=== PATIENT | female | born 2005 | race Two or more races ===

== ENCOUNTER 2024-10-19 04:21 | Emergency (ER) | payer MEDICAID, SELFPAY ==
[2024-10-19 04:23] VITALS: BMI 27.0
[2024-10-19 04:32] VITALS: BP 118/83; PULSE 127; RESP 20; TEMP 37; O2SAT 96
[2024-10-19 04:55] VITALS: PULSE 106
--- NOTE | 2024-10-19 04:55 | PD.EDURI ---
Upper Respiratory Inf. RME/HPI General Chief Complaint: Flu Like Symptoms Stated Complaint: cough and chest pain Time Seen by Provider: 10/19/24 04:50 Arrival date/time: 10/19/24 04:21 19F with no significant PMH presents to ED with 2 days of cough, nasal congestion, and some CP when coughing. Patient denies SOB. Patient is 8 months , but denies ab pain and vaginal bleeding. Limitations: no limitations Related Data Allergies Allergy/AdvReac Type Severity Reaction Status Date / Time No Known Allergies Allergy Verified 10/19/24 04:22 Review of Systems Review of Systems Systems Reviewed: All systems reviewed, normal except as documented Constitutional Constitutional: Reports system reviewed and no additional complaints, except as documented, Denies fever(s) and Denies headache(s) ENT Ears, Nose, Mouth, and Throat: Reports as per HPI, Denies disequilibrium, Denies headache(s) and Reports nasal congestion Cardiovascular Cardiovascular: Reports system reviewed and no additional complaints, except as documented, Reports as per HPI, Reports chest pain and Denies dyspnea Respiratory Respiratory: Reports system reviewed and no additional complaints, except as documented, Reports as per HPI, Reports cough and Denies dyspnea Gastrointestinal Gastrointestinal: Reports system reviewed and no additional complaints, except as documented, Denies abdominal pain, Denies nausea and Denies vomiting Neurologic Neurologic: Reports system reviewed and no additional complaints, except as documented, Denies confusion, Denies disequilibrium and Denies headache(s) Psychiatric Psychiatric: Denies confusion Past Medical History Past Medical History CARDIAC: Negative Congestive Heart Failure RESPIRATORY: Negative Chronic Obstructive Pulmonary Disease (COPD) GENITOURINARY: Negative Renal Disease ENDOCRINE: Negative Diabetes Mellitus Type 1 or Diabetes Mellitus Type 2 Social History SMOKING STATUS: Never smoker ED Exam General Limitations: Present no limitations General appearance: Present alert and in no apparent distress Head Head exam: Present atraumatic Eye Eye exam: Present normal appearance, PERRL and EOMI ENT ENT exam: Present normal exam, normal oropharynx and mucous membranes moist Neck Neck exam: Present normal inspection, full ROM and trachea midline Chest Chest inspection: Present normal inspection and symmetric chest wall rise Respiratory Respiratory exam: Present normal lung sounds bilaterally Cardiovascular Cardiovascular exam: Present regular rate, normal rhythm and normal heart sounds Abdominal Exam Abdominal exam: Present soft and normal bowel sounds Extremities Exam Extremities exam: Present normal inspection and full ROM Back Exam Back exam: Present normal inspection and full ROM Neurological Exam Neurological exam: Present alert, oriented X3 and CN II-XII intact Psychiatric Psychiatric exam: Present normal affect and normal mood Skin Skin exam: Present warm, dry, intact and normal color Course Quality Measures none Orders Category Date Time Status Bedside COVID-19 Antigen Test NOW Care 10/19/24 04:51 Active Bedside Influenza A&B Antigen Test NOW Care 10/19/24 04:29 Completed Acetaminophen Tab [Tylenol ES Tab] Med 10/19/24 04:53 Discontinued 500 mg PO X1 ONE DiphenhydrAMINE [Benadryl] Med 10/19/24 05:01 Once 25 mg PO X1 ONE Vital Signs Vital signs: Vital Signs Temperature 98.6 F 10/19/24 04:32 Pulse Rate 127 H 10/19/24 04:32 Respiratory Rate 20 10/19/24 04:32 Blood Pressure 118/83 10/19/24 04:32 Pulse Oximetry (%) 96 10/19/24 04:32 Oxygen Delivery Method Room Air 10/19/24 04:32 O2 at 96% on RA and WNLs Upper Respiratory Infection MDM Narrative MDM Narrative:: 19F with no significant PMH presents to ED with 2 days of cough, nasal congestion, and some CP when coughing. Patient denies SOB. Patient is 8 months , but denies ab pain and vaginal bleeding. Physical exam reveals nasal congestion, but clear lungs. Normal WOB. Patient is afebrile, calm, and alert. Swabs neg. Likely viral URI. Meds and college and career counselor given. Patient data External records reviewed:: [facility] previous records Clinical information provided by:: patient Social determinants that could affect healthcare access:: none Patient has the following chronic illnesses:: none How is presenting disease/condition affected by chronic disease/condition?: no chronic disease Evaluation data The following diagnostics were reviewed and interpreted by me:: lab results Lab and/or radiology exams considered but not ordered:: ordered Interpretation Summary: above Medications / Prescriptions Medications or Prescriptions considered but not ordered:: ordered Medication administrations:: Medication Administration History Diphenhydramine HCl (Diphenhydramine 25 Mg Capsule) 25 mg PO X1 ONE Stop: 10/19/24 05:02 Discontinued Medications Acetaminophen (Acetaminophen 500 Mg Tablet) 500 mg PO X1 ONE Stop: 10/19/24 04:54 above Consultations Consultation(s) initiated? (list below): No Diagnosis Upper Respiratory Differential Diagnosis: upper respiratory infection, croup, otitis media, sinusitis, viral infection, bronchitis, influenza and pharyngitis Most likely diagnosis given after review of the tests above:: URI Admission Indicated Admission indicated?: not indicated Admission Request Was there a request for admission?: No Disposition Plan Disposition Plan: Discharge Discharge Attestation Discharge Attestation: The patient and all family members were given an opportunity to ask questions and understood the discharge instructions. Discharge instructions specifically effects, indications for sooner follow up or return to the emergency department, and the expected course of current diagnosis. Patient condition: Stable Discharge Plan Plan Patient Disposition: HOME (Self Care) Disposition Comment: Stable Problem List Clinical Impression: Upper respiratory infection Patient/Caregiver Discharge Instructions Education Materials: ED URI, Viral, No Abx (Adult) Additional Instructions: Please follow-up with PCP within 24-48 hours and return immediately if symptoms worsen. Tylenol can be used for fever/pain control. Benadryl is good for cough, congestion, and sleep. Print Language: Belarusian Stand Alone Forms: Patient Portal Info Letter REYMUNDO/ADA Supervising Physician REYMUNDO/ADA Supervising Physician: Dr. Vyas
[2024-10-19] MEDS: DiphenhydrAMINE 25 MG CAPSULE PO (05:09)
[2024-10-19] MEDS: ACETAMINOPHEN 500 MG TABLET PO (05:09)
== END 2024-10-19 05:22 | disposition home or self-care (01) ==
PROVIDERS: Emergency Provider Emergency Medicine; PCP Family Medicine
DX: J06.9 Acute upper respiratory infection, unspecified (principal)
CPT/HCPCS: 87400; 99283; A9270

== ENCOUNTER 2024-12-03 16:09 | Observation (INO) | payer MEDICAID, SELFPAY ==
[2024-12-03] VITALS (14 sets, daily range): BP systolic 125–129; BP diastolic 85–89; PULSE 87–113; RESP 18–98; TEMP 36.7; O2SAT 97–98; BMI 29.2
--- NOTE | 2024-12-03 17:44 | PC.NURSE ---
VSS reviewed by provider. Ordered by to discharge patient. Patient vitals WNL. Patient asymptomatic. Patient discharged home with significant other. Patient educated on discharge instructions and reasons to return including labor signs and preeclampsia symptoms. Patient instructed to follow up with OB at next scheduled appt on 12/10/24. Patient verbalzies understanding, all questions answered and encouraged.
== END 2024-12-03 17:23 | disposition home or self-care (01) ==
PROVIDERS: Admitting Provider Obstetrics & Gynecology; Visit Provider Obstetrics & Gynecology
DX: O26.893 Other specified pregnancy related conditions, third trimester (principal); Z3A.37 37 weeks gestation of pregnancy; R03.0 Elevated blood-pressure reading, without diagnosis of hypertension
CPT/HCPCS: 59025; 59899

== ENCOUNTER 2024-12-13 06:04 | Inpatient (IN) | payer MEDICAID, SELFPAY ==
[2024-12-13] VITALS (108 sets, daily range): BP systolic 106–152; BP diastolic 30–108; PULSE 73–132; RESP 13–98; TEMP 36.7–37.2; O2SAT 90–100; BMI 29.2
--- NOTE | 2024-12-13 07:02 | XR_ITS ---
Examination: Complete OB ultrasound greater than 14 weeks Date and time of exam: December 13, 2024 0857 hours INDICATIONS: Onset pelvic contractions today Findings: Viable intrauterine single fetus with single amniotic sac presentation cephalic Cardiac motion 147 BPM Placenta anterior grade 3 Umbilical cord insertion seen Amniotic fluid index 11.7 cm Ovaries obscured by bowel gas. Composite estimated gestational age based on BPD, head circumference, abdominal circumference, femur length is 36 weeks 2 days Estimated weight 2921.8 g. Survey of intracranial anatomy, spinal anatomy, abdominal anatomy, four-chamber heart performed with no abnormalities identified. Impression: Viable intrauterine gestation cephalic presentation Estimated gestational age 36 weeks 2 days.
--- NOTE | 2024-12-13 08:00 | PC.NURSE ---
patient to be admitted to antepartum unit for observation. Report given to receiving RN
--- NOTE | 2024-12-13 08:08 | PD.LDHP ---
Documentation for date of: 12/13/24 OB Labor/Induct. HPI History of Present Illness Chief complaint: Elevated Blood Pressures, Headache : 1 Para: 0 Term pregnancies: 0 pregnancies: 0 Living children: 0 History of Abortions: Spontaneous and Elective: 0 History of Vaginal deliveries: 0 History of sections: No History of : No AMY: 12/19/24 History of present illness: Chief Complaint Headache and contractions at 39 weeks and 1 day gestation History of Present Illness Sammi Davis is a 39-week and 1-day woman () with an estimated due date of December 19, 2024, who presented to labor and delivery triage with complaints of headache and contractions. Upon initial examination, she was found to be 1 cm dilated. The patient was admitted after monitoring showed periods of minimal variability with occasional variable decelerations. A preeclampsia panel was performed and found to be within normal limits. The patient's headache resolved after one dose of Tylenol. She was subsequently admitted for induction of labor. Induction was initiated with Cervidil; however, it was discontinued when the baby started having recurrent late decelerations. After a few hours, when the tracing improved, Cytotec was administered. Unfortunately, the baby again experienced periods of minimal variability with recurrent variable and occasional late decelerations. Throughout this process, the patient was placed on labetalol 200 mg TID, which she tolerated well. This treatment effectively lowered her blood pressure from mild and occasionally severe range to normal. The patient received her care at [facility] in [facility]. Her labs showed blood group O positive, rubella immune status, non-reactive RPR, negative hepatitis B and C, positive group B strep, and a negative glucose tolerance test. Obstetric History - GPAL: A0 L0 - Current : - Gestational age: 39 weeks and 1 day - Estimated due date: December 19, 2024 - Group B strep positive - history: - First , no prior deliveries Medications and Supplements - Tylenol - One dose given for headache. Headache resolved after administration. - Cervidil - Started for induction of labor. Discontinued due to recurrent late decelerations. - Cytotec - Started after Cervidil discontinuation for induction of labor. - Labetalol 200 mg by mouth three times daily - Tolerated well. Resulted in drop of blood pressures from mild and occasional severe range to normal. Immunizations - Rubella: Patient is immune Review of Systems General: Positive for headache. Neurological: Positive for headache, which resolved after Tylenol. History of Present Adequate Care: Yes Labs Narrative: - Preeclampsia panel: Within normal limits - labs: - Blood group: O positive - Rubella: Immune - RPR: Non-reactive - Hepatitis B: Negative - Hepatitis C: Negative - Group B strep: Positive - 1-hour glucose tolerance test: Negative Past Medical History Surgical History SURGICAL: Negative Section Meds Home Medications and Allergies Home Medications ?Medication ?Instructions ?Recorded ?Confirmed ?Type vitamin-ferrous fumarate 1 tab PO QDAY 12/13/24 12/13/24 History 28 mg iron-folic acid 800 mcg tablet Allergies Allergy/AdvReac Type Severity Reaction Status Date / Time No Known Allergies Allergy Verified 12/13/24 08:37 OB Exam Physical Exam Vital signs: Temp Pulse Resp BP Pulse Ox 98.3 F 98 18 146/85 H 98 12/13/24 06:20 12/13/24 08:07 12/13/24 06:20 12/13/24 08:07 12/13/24 07:39 Constitutional Constitutional: no acute distress Routine HEENT Exam Head: Present normocephalic and atraumatic Eye: Present EOMI and PERRL ENT: Present mucous membranes moist Routine Neck Exam Neck: Present supple and trachea midline Routine Cardiovascular Exam Cardiovascular: Present RRR Routine Abdominal Exam Abdominal: Present soft and normoactive bowel sounds Detailed Labor and Delivery Exam Dilation (cm): 1 Effacement (%): 50 Cervix position: mid station: -3 Consistency: firm Presentation: Vertex Baseline heart rate: 135 monitor accelerations: 15x15 monitor decelerations: Variable terminal gauger variability: Average (6-10) Contraction frequency (min): 5 Routine Extremities Exam Extremities: Present full ROM Routine Skin Exam Skin: Present intact, dry and warm Routine Neurological Exam Neurological: Present alert, oriented X3 and CN II-XII intact Routine Psychiatric Exam Psychiatric: Present normal affect and normal thought process OB Results Labs 12/13/24 06:45 12/13/24 06:45 OB Assessment & Plan Assessment and Plan (1) intolerance to labor, delivered, current hospitalization: Status: Acute Assessment and plan: Assessment: Patient initially presented with headache and contractions, and was admitted after periods of minimal heart rate variability with occasional variable decelerations were noted. Induction of labor was attempted first with Cervidil, which was discontinued due to recurrent late decelerations. After tracing resolved, Cytotec was initiated, but again resulted in periods of minimal variability with recurrent variable and occasional late decelerations. Given the persistent heart rate concerns and lack of cervical change (patient remains 1 cm dilated), delivery via section is now recommended. Plan: - Proceed with section delivery after patient agreement and informed consent - Continue monitoring until delivery (2) Meconium stained amniotic fluid, delivered, current hospitalization: Status: Acute (3) Primigravida in third trimester: Status: Acute (4) Gestational hypertension: Status: Acute Assessment and plan: Assessment: Patient was placed on labetalol 200 mg TID during the admission process. This intervention has been well-tolerated, with blood pressures dropping from mild and occasional severe range to normal. Plan: - Continue labetalol 200 mg PO TID - Monitor blood pressure (4) Gestational hypertension Qualifiers: Trimester: third trimester Qualified Code(s): O13.3 - Gestational [-induced] hypertension without significant proteinuria, third trimester
[2024-12-13] MEDS: LABETALOL 100 MG TABLET 200 MG PO ×3 (08:39→22:15)
[2024-12-13] MEDS: NIFEdipine 10 MG CAPSULE PO (08:39)
[2024-12-13 08:42] LABS: Collection Type, Urine Clean Catch
[2024-12-13 08:48] LABS: Basophils % (Auto) 0 % (0-2.5); Eosinophils # (Auto) 0.1 Thou/mm3 (0.0-0.5); Eosinophils % (Auto) 1 % (0-10); Hematocrit 30.5 % (36.0-46.0); Hemoglobin 10.3 g/dL (12.0-16.0); Immature Granulocytes % (Auto) 1 % (0-0); Immature Granulocytes Auto 0.05 Thou/mm3 (0.00-0.00); Lymphocytes # (Auto) 2.6 Thou/mm3 (1.0-4.8); Lymphocytes % (Auto) 29 % (10-50); Mean Corpuscular HGB Conc 33.8 g/dl (31.0-37.0); Mean Corpuscular Volume 83 fL (80-100); Monocytes % (Auto) 11 % (0-12); Neutrophils # (Auto) 5.2 Thou/mm3 (1.8-7.7); Neutrophils % (Auto) 58 % (37-80); Nucleated Red Blood Cell # 0.07 Thou/mm3 (0.00-0.00); Nucleated Red Blood Cell % 1 /100 WBC (0); Platelet Count 278 Thou/mm3 (140-440); RDW Standard Deviation 49.9 fL (36.4-46.3); Red Blood Count 3.68 Miln/mm3 (4.00-5.20); White Blood Count 8.9 Thou/mm3 (4.5-11.0)
--- NOTE | 2024-12-13 08:53 | XR_ITS ---
Examination: Biophysical profile, ultrasound Date and time of exam: December 13, 2024 0916 hours INDICATIONS: Onset pelvic contractions today Technique: Multiple transabdominal sonographic images of the pelvis abdomen obtained. Attention is directed to the breathing movement, gross body movement, amniotic fluid volume and tone. Findings: Amniotic fluid index 11.5 cm Total biophysical profile is 8 of 8. breathing movement is 2. Gross body movement is 2. tone is 2. Qualitative amniotic fluid volume is 2 Impression: Biophysical profile is 8 of 8.
[2024-12-13 08:58] LABS: Bacteria,Urine 1+; Bilirubin,Urine Negative (Negative); Blood,Urine 2+ (Negative); Glucose, Urine Negative (Negative); Ketones,Urine Negative (Negative); Leukocyte Esterase,Urine Positive (Negative); Nitrite,Urine Negative (Negative); Protein,Urine 2+ (Neg - Trace); RBC,Urine 15 /hpf (0-3); Specific Gravity,Urine 1.006 (1.001-1.035); Squamous Epithelial Cell,Urine 3 /hpf (0-5); Urobilinogen,Urine Negative mg/dL (0.0-1.0); WBC,Urine 15 /hpf (0-5)
[2024-12-13 09:02] LABS: Clarity,Urine Hazy (Clear/Hazy); Color,Urine Lt-Yellow (Lt Yel-Yel)
[2024-12-13 09:15] LABS: Alanine Aminotransferase 9 U/L (10-49); Albumin, Serum 3.8 gm/dL (3.5-5.0); Albumin/Globulin Ratio 1.2 (1.2-2.2); Alkaline Phosphatase 232 U/L (46-116); Anion Gap 9 (7-16); Aspartate Amino Transferase 18 U/L (0-34); BUN/Creatinine Ratio 17 Ratio (12-20); Bilirubin,Total 0.2 mg/dL (0.3-1.2); Blood Urea Nitrogen 10 mg/dL (9-23); Calcium 8.7 mg/dL (8.3-10.6); Calcium (Corrected) 8.9 mg/dL (8.5-10.1); Carbon Dioxide 21.6 mMol/L (20.0-31.0); Chloride 108 mMol/L (98-107); Creatinine (Component) 0.6 mg/dL (0.6-1.3); Estimated Creatinine Clearance 112.6 mL/min (>60); Globulin 3.1 gm/dL (2.3-3.5); Glucose 78 mg/dL (74-106); Osmolality,Calculated 275 (275-295); Potassium 4.1 mMol/L (3.4-5.1); Sodium 139 mMol/L (136-145); Total Protein 6.9 gm/dL (5.7-8.2); Uric Acid 5.3 mg/dL (3.1-7.8); eGFR > 60 See Note
[2024-12-13 09:23] LABS: Syphilis Nonreactive (Nonreactive)
[2024-12-13 09:40] LABS: Creatinine,Random Urine 17 mg/dL (30-125); Protein Total, Random Urine 182 mg/dL (1-14)
[2024-12-13 10:18] LABS: Fibrinogen 478 mg/dL (175-375); INR 0.9 (0.9-1.3); Partial Thromboplastin Time 24.3 Seconds (22.0-36.0); Prothrombin Time 9.8 Seconds (9.0-12.2)
[2024-12-13] MEDS: RINGERS LACTATED 1000 ML 1,000 ML 100 ML IV ×3 (11:28→16:47)
[2024-12-13] MEDS: ACETAMINOPHEN IVPB 1,000 MG/100 ML VIAL 250 MG IV ×2 (12:04→18:08)
[2024-12-13] MEDS: DINOPROSTONE 10 MG VAG.SUPP VAGINAL (13:39)
[2024-12-13] MEDS: FAMOTIDINE INJ 10 MG/ML VIAL 2 ML 20 MG IV (19:07)
[2024-12-13] MEDS: ceFAZolin/D5W 2 GM IV 2 GM/100 ML BAG IV (19:08)
--- NOTE | 2024-12-13 19:34 | PD.GYNPROC ---
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 Identity was confirmed by double identifiers and she was placed on the operating table.? Spinal anesthesia was administered and she was positioned in the supine position.? The abdomen and perineum were prepped in the usual sterile fashion and a [place] catheter was placed to continuous drainage.? Sterile drapes were applied.? The incision site was tested for adequacy of anesthesia.? A Pfannenstiel skin incision was made with a scalpel and carried to the subcutaneous fat up to the rectus fascia.? The rectus fascia was incised on either side of the midline and the incisions were extended bilaterally.? The fascia was gently dissected off the ventral surface of the rectus muscle both superiorly and inferiorly.? The rectus bellies were gently in the midline and the peritoneum was identified and entered bluntly using the surgeon's finger.? The peritoneal opening was now stretched to create an adequate opening for access to the uterus.? Koffi O-ring retractor was placed for adequate visualization.? The anterior surface of the uterus was palpated.? The bladder reflection was identified and a Dary Perez low transverse uterine incision was made in the lower uterine segment taking care to avoid the bladder.? Uterine entry was accomplished bluntly and the opening was stretched to create adequate room.? The amniotic membranes were now ruptured and thick meconium stained amniotic fluid was released.? The fetus was noted to be in the vertex position.? The head was gently elevated out of the maternal pelvis and the rest of the shoulders and body were delivered by gentle fundal pressure.? Umbilical cord was doubly clamped, divided and the was handed over to the waiting team.? Cord gas samples were obtained.? The placenta was delivered by gentle traction on the umbilical cord.? The interior of the uterus was now thoroughly cleaned of all blood and debris and membranes.? The hysterotomy angles were grasped by a pair of Allis clamps and the hysterotomy was closed using 1 Monocryl suture in 2 layers.? The first layer was used to approximate the muscle in a running locked fashion, the second layer was used to approximate the thickness of the myometrium?and uterine serosa in an imbricated manner.? Once the repair was completed the hysterotomy was inspected and noted to be adequately hemostatic.?? The hysterotomy was once again inspected and hemostasis was noted to be satisfactory.? The Koffi retractor was now removed.? The peritoneal edges were re approximated.? The rectus muscles were re approximated.? The rectus fascia was now repaired using 0 Vicryl suture in a running fashion.? The subcutaneous layer was now copiously irrigated using warm normal saline.? All bleeding points were cauterized using the Bovie.? The subcutaneous fat was closed using 3-0 Vicryl.? The skin was closed using 4-0 Monocryl in a subcuticular fashion.? The skin was cleaned and a sterile dressing was applied.? The patient was now undraped, the abdomen and back were thoroughly cleaned and she was transferred to the recovery room in a stable and awake condition.? The patient tolerated the entire procedure well.? No complications were encountered.? All instrument, sponge and lap counts were correct x2. Specimen: none Estimated blood loss (ml): 650 Complications: none Surgical staff Operation Date: 12/13/24 19:45 <No data on this case meets the specified criteria> Diagnosis Discharge Diagnosis (1) delivery delivered: Status: Acute (2) Gestational hypertension: Status: Acute (3) Primigravida in third trimester: Status: Acute (4) Meconium stained amniotic fluid, delivered, current hospitalization: Status: Acute (5) intolerance to labor, delivered, current hospitalization: Status: Acute (6) Acute postoperative pain: Status: Acute Problem List Completed Was Problem List Reviewed/Reconciled?: Yes
--- NOTE | 2024-12-13 20:41 | PD.LDDELS ---
Data ([facility]) Data Hx Section: No : 1 Term: 0 : 0 Livin Abortions: Spontaneous & Theraputic: 0 Delivery Data ([facility]) Delivery Data Delivered by: CASADNRA
[2024-12-13] MEDS: OXYTOCIN in NS 20 units 20 UNIT/1,000 ML BAG 125 UNIT IV (21:22)
[2024-12-14] VITALS (8 sets, daily range): BP systolic 115–147; BP diastolic 69–93; PULSE 87–97; RESP 18; TEMP 36.7–37.3; O2SAT 96–98
[2024-12-14] MEDS: KETOROLAC INJ 30 MG/ML VIAL IVP ×2 (04:19→11:40)
[2024-12-14 05:05] LABS: Basophils % (Auto) 0 % (0-2.5); Eosinophils % (Auto) 0 % (0-10); Hematocrit 23.3 % (36.0-46.0); Immature Granulocytes % (Auto) 0 % (0-0); Immature Granulocytes Auto 0.04 Thou/mm3 (0.00-0.00); Lymphocytes # (Auto) 1.5 Thou/mm3 (1.0-4.8); Lymphocytes % (Auto) 16 % (10-50); Mean Corpuscular HGB Conc 33.5 g/dl (31.0-37.0); Mean Corpuscular Hemoglobin 28.1 pg (25.0-35.0); Mean Corpuscular Volume 84 fL (80-100); Monocytes # (Auto) 0.8 Thou/mm3 (0.0-0.8); Monocytes % (Auto) 8 % (0-12); Neutrophils # (Auto) 7.1 Thou/mm3 (1.8-7.7); Neutrophils % (Auto) 76 % (37-80); Nucleated Red Blood Cell % 0 /100 WBC (0); Platelet Count 215 Thou/mm3 (140-440); RDW Standard Deviation 51.5 fL (36.4-46.3); Red Blood Count 2.78 Miln/mm3 (4.00-5.20); White Blood Count 9.5 Thou/mm3 (4.5-11.0)
[2024-12-14 05:16] LABS: Hemoglobin 7.8 g/dL (12.0-16.0)
[2024-12-14] MEDS: LABETALOL 100 MG TABLET 200 MG PO ×3 (05:47→22:02)
[2024-12-14] MEDS: OXYTOCIN in NS 20 units 20 UNIT/1,000 ML BAG 125 UNIT IV (05:48)
[2024-12-14] MEDS: DOCUSATE SOD 100 MG CAPSULE PO (08:30)
--- NOTE | 2024-12-14 09:11 | PD.LDPPPRG ---
Subjective Subjective Interval history: Patient is a 19-year-old G1 now P1 001 status post primary yesterday around [address] Garber. The was for persistent category 2-3 tracing. Patient is resting in bed. Her [place] catheter is in place. Father the baby and the baby are at bedside. Of note her blood pressure was elevated on admission. Her predelivery hemoglobin was 10.3 her post was 7.8 the plan will be to recheck another hemoglobin today. Exam Vital Signs Temp Pulse Resp BP Pulse Ox O2 Del Method 98.7 F 89 18 115/69 96 Room Air 12/14/24 04:44 12/14/24 05:47 12/14/24 04:44 12/14/24 05:47 12/14/24 04:44 12/14/24 04:44 Narrative Exam Patient is alert and oriented x 3 she is resting comfortably in bed. Her abdomen is distended extremities show no significant edema her incision is dressed and dry Objective Labs 12/14/24 04:40 12/13/24 06:45 Labs: Laboratory Results - last 24 hr 12/13/24 12/13/24 12/13/24 06:45 07:00 07:30 WBC RBC Hgb Hct MCV MCH MCHC RDW Std Deviation Plt Count Neut % (Auto) Lymph % (Auto) [place] % (Auto) Eos % (Auto) Baso % (Auto) Neut # (Auto) Lymph # (Auto) [place] # (Auto) Eos # (Auto) Baso # (Auto) Immature Gran # (Auto) Absolute Nucleated RBC Immature Gran % Nucleated RBC % PT 9.8 INR 0.9 APTT 24.3 Fibrinogen 478 H Sodium 139 Potassium 4.1 Chloride 108 H Carbon Dioxide 21.6 Anion Gap 9 BUN 10 Creatinine 0.6 Estim Creat Clear Calc 112.6 eGFR > 60 BUN/Creatinine Ratio 17 Glucose 78 Calculated Osmolality 275 Uric Acid 5.3 Calcium 8.7 Corrected Calcium 8.9 Total Bilirubin 0.2 L AST 18 ALT 9 L Alkaline Phosphatase 232 H Total Protein 6.9 Albumin 3.8 Globulin 3.1 Albumin/Globulin Ratio 1.2 Ur Random Creatinine 17 L U Random Total Protein 182 H Syphilis Serology Nonreactive Blood Type O Positive Antibody Screen NEGATIVE Blood Bank Wristband ID Yes 12/14/24 04:40 WBC 9.5 RBC 2.78 L Hgb 7.8 L D Hct 23.3 L MCV 84 MCH 28.1 MCHC 33.5 RDW Std Deviation 51.5 H Plt Count 215 D Neut % (Auto) 76 Lymph % (Auto) 16 [place] % (Auto) 8 Eos % (Auto) 0 Baso % (Auto) 0 Neut # (Auto) 7.1 Lymph # (Auto) 1.5 [place] # (Auto) 0.8 Eos # (Auto) 0.0 Baso # (Auto) 0.0 Immature Gran # (Auto) 0.04 H Absolute Nucleated RBC 0.00 Immature Gran % 0 Nucleated RBC % 0 PT INR APTT Fibrinogen Sodium Potassium Chloride Carbon Dioxide Anion Gap BUN Creatinine Estim Creat Clear Calc eGFR BUN/Creatinine Ratio Glucose Calculated Osmolality Uric Acid Calcium Corrected Calcium Total Bilirubin AST ALT Alkaline Phosphatase Total Protein Albumin Globulin Albumin/Globulin Ratio Ur Random Creatinine U Random Total Protein Syphilis Serology Blood Type Antibody Screen Blood Bank Wristband ID Assessment & Plan Problem List (1) intolerance to labor, delivered, current hospitalization: Problem details: Baby at bedside doing well. Patient working on breast-feeding. Status: Acute (2) Gestational hypertension: Status: Acute Assessment and plan: Monitor blood pressures (3) delivery delivered: Problem details: DC [place] advance diet as tolerated. Encouraged ambulation in halls. Encourage p.o. pain medications as needed. Recheck CBC Status: Acute Time Spent With Patient Time: Total time spent is greater than 50% in coordination of care (as documented) at patient's floor/unit and/or counseling patient: Time with patient: less than 15 minutes
[2024-12-14 10:36] LABS: Basophils % (Auto) 0 % (0-2.5); Eosinophils % (Auto) 0 % (0-10); Hematocrit 23.7 % (36.0-46.0); Immature Granulocytes % (Auto) 0 % (0-0); Immature Granulocytes Auto 0.04 Thou/mm3 (0.00-0.00); Lymphocytes # (Auto) 1.4 Thou/mm3 (1.0-4.8); Lymphocytes % (Auto) 14 % (10-50); Mean Corpuscular HGB Conc 33.3 g/dl (31.0-37.0); Mean Corpuscular Hemoglobin 28.1 pg (25.0-35.0); Mean Corpuscular Volume 84 fL (80-100); Monocytes # (Auto) 0.7 Thou/mm3 (0.0-0.8); Monocytes % (Auto) 7 % (0-12); Neutrophils % (Auto) 78 % (37-80); Nucleated Red Blood Cell # 0.02 Thou/mm3 (0.00-0.00); Nucleated Red Blood Cell % 0 /100 WBC (0); Platelet Count 205 Thou/mm3 (140-440); RDW Standard Deviation 52.8 fL (36.4-46.3); Red Blood Count 2.81 Miln/mm3 (4.00-5.20); White Blood Count 10.3 Thou/mm3 (4.5-11.0)
[2024-12-14 10:40] LABS: Hemoglobin 7.9 g/dL (12.0-16.0)
[2024-12-14] MEDS: SIMETHICONE 80 MG CHEW PO (15:59)
[2024-12-14] MEDS: IBUPROFEN TAB 400 MG TABLET 800 MG PO (20:50)
[2024-12-15] VITALS (7 sets, daily range): BP systolic 106–144; BP diastolic 68–98; PULSE 80–98; RESP 16–18; TEMP 36.4–36.9; O2SAT 97–99
[2024-12-15] MEDS: HYDROcodone/APAP 5/325 TABLET 1 TAB PO ×2 (04:12→15:59)
[2024-12-15] MEDS: LABETALOL 100 MG TABLET 200 MG PO ×2 (05:52→14:16)
[2024-12-15 08:54] LABS: Basophils % (Auto) 0 % (0-2.5); Eosinophils # (Auto) 0.1 Thou/mm3 (0.0-0.5); Eosinophils % (Auto) 1 % (0-10); Hematocrit 22.3 % (36.0-46.0); Immature Granulocytes % (Auto) 1 % (0-0); Immature Granulocytes Auto 0.05 Thou/mm3 (0.00-0.00); Lymphocytes # (Auto) 1.4 Thou/mm3 (1.0-4.8); Lymphocytes % (Auto) 14 % (10-50); Mean Corpuscular HGB Conc 32.3 g/dl (31.0-37.0); Mean Corpuscular Hemoglobin 28.1 pg (25.0-35.0); Mean Corpuscular Volume 87 fL (80-100); Monocytes # (Auto) 0.6 Thou/mm3 (0.0-0.8); Monocytes % (Auto) 6 % (0-12); Neutrophils # (Auto) 7.6 Thou/mm3 (1.8-7.7); Neutrophils % (Auto) 79 % (37-80); Nucleated Red Blood Cell # 0.02 Thou/mm3 (0.00-0.00); Nucleated Red Blood Cell % 0 /100 WBC (0); Platelet Count 185 Thou/mm3 (140-440); RDW Standard Deviation 55.5 fL (36.4-46.3); Red Blood Count 2.56 Miln/mm3 (4.00-5.20); White Blood Count 9.6 Thou/mm3 (4.5-11.0)
[2024-12-15 09:01] LABS: Hemoglobin 7.2 g/dL (12.0-16.0)
[2024-12-15] MEDS: DOCUSATE SOD 100 MG CAPSULE PO (09:08)
[2024-12-15] MEDS: ACETAMINOPHEN 325 MG TABLET 650 MG PO (09:10)
--- NOTE | 2024-12-15 11:13 | ESPR_ITS ---
RE: EDVIN RODRIGUEZ : 2005 DATE OF SERVICE: 12/15/2024 S: Postop day #2, the patient denies any problem or complaints. She is voiding. She is ambulating. She is tolerated regular light. She is passing flatus. She denies any excessive vaginal bleeding. She denies any dizziness or lightheadedness. She denies any chest pain, palpitations, shortness of breath, or lower extremity pain. O: Vital Signs: Blood pressure 114/68, heart rate 86, respirations 18, and temperature is 98.0. Lungs: Clear to auscultation bilaterally. Heart: Regular rate and rhythm. Abdomen: Incision is clear and intact. Fundus is firm, nondistended. Extremities: Nontender. LABORATORY DATA: Hemoglobin pre-delivery is 10.3 and post delivery is 7.2. A: 1. Postop day #2, status post delivery. 2. Anemia, but hemodynamically stable. P: Discharge home. Discharge instructions given. Follow up in the office in 1 week. DT: 09:10:22 TT: 11:12:00 Ref: [id number] - TID: [id number]
== END 2024-12-15 20:00 | disposition home or self-care (01) | DRG 540 ==
LOC: S4SX 19:00 → S4NX 19:33
PROVIDERS: Obstetrics & Gynecology; Admitting Provider Obstetrics & Gynecology; Visit Provider Specialist
PROC: 10D00Z1 Extraction of Products of Conception, Low, Open Approach (ICD-10-PCS; CPT 59514; principal; 2024-12-13 19:30)
DX: O76 Abnormality in fetal heart rate and rhythm complicating labor and delivery (principal); Z3A.39 39 weeks gestation of pregnancy; Z37.0 Single live birth; O77.0 Labor and delivery complicated by meconium in amniotic fluid; O13.4 Gestational [pregnancy-induced] hypertension without significant proteinuria, complicating childbirth; O75.81 Maternal exhaustion complicating labor and delivery; O99.824 Streptococcus B carrier state complicating childbirth
CPT/HCPCS: 36415; 59025; 59409; 76805; 76819; 80053; 81001; 82570; 84156; 84550; 85025; 85384; 85610; 85730; 86780; 86850; 86900; 86901; 94762; A4649; J0131; J0689; J1885; J2274; J2371; J2590; J3010; J3490; J7120; A9270; J2270

== ENCOUNTER 2025-02-04 06:37 | Emergency (ER) | payer MEDICAID, SELFPAY ==
[2025-02-04 06:39] VITALS: BMI 25.3
[2025-02-04 06:52] VITALS: BP 118/85; PULSE 85; RESP 20; TEMP 36.8; O2SAT 98
--- NOTE | 2025-02-04 07:08 | EDNOTE_ITS ---
<Statement entered by Arianne Franklin MD - 02/13/25 19:29> As co-signing physician, I was present and available for consult prn. I concur with the plan and care as documented by the midlevel provider. ED Wound/Laceration-RME/HPI General Chief Complaint: Wound Recheck / Suture Removal Stated Complaint: RE CHECK INCISION SITE Time Seen by Provider: 02/04/25 06:55 Source: patient Arrival date/time: 02/04/25 06:37 19-year-old female with no known medical history presents to the emergency room with a chief complaint of a lump to her left abdominal area. Patient states she recently had a a month ago. Mode of arrival: ambulatory Limitations: no limitations Related Data Home Medications ?Medication ?Instructions ?Recorded ?Confirmed vitamin-ferrous fumarate 1 tab PO QDAY 12/13/24 28 mg iron-folic acid 800 mcg tablet Previous Rx's ?Medication ?Instructions ?Recorded ferrous sulfate 325 mg (65 mg 325 mg PO BID #60 tabs 0 12/15/24 iron) tablet,delayed release hydrocodone 5 mg-acetaminophen 325 1 tab PO Q6H PRN pa in #20 tabs 12/15/24 mg tablet ibuprofen 600 mg tablet 600 mg PO Q6H PRN pain #30 t abs 12/15/24 Allergies Allergy/AdvReac Type Severity Reaction Status Date / Time No Known Allergies Allergy Verified 02/04/25 06:38 Review of Systems Review of Systems Systems Reviewed: All systems reviewed, normal except as documented Constitutional Constitutional: Reports system reviewed and no additional complaints, except as documented, Denies fatigue, Denies fever(s), Denies headache(s) and Denies weakness Eyes Eyes: Reports system reviewed and no additional complaints, except as documented, Denies blurry vision and Denies change in vision ENT Ears, Nose, Mouth, and Throat: Reports system reviewed and no additional complaints, except as documented, Denies otalgia, Denies headache(s), Denies nasal congestion, Denies throat swelling and Denies vertigo Cardiovascular Cardiovascular: Reports system reviewed and no additional complaints, except as documented, Denies chest pain, Denies dyspnea and Denies dyspnea on exertion Respiratory Respiratory: Reports system reviewed and no additional complaints, except as documented, Denies chest congestion, Denies cough, Denies dyspnea, Denies dyspnea on exertion and Denies wheezing Gastrointestinal Gastrointestinal: Reports system reviewed and no additional complaints, except as documented, Denies abdominal pain, Denies cramping, Denies nausea and Denies vomiting Genitourinary Genitourinary: Reports system reviewed and no additional complaints, except as documented Musculoskeletal Musculoskeletal: Reports system reviewed and no additional complaints, except as documented and Denies back pain Integumentary/Breasts Skin/Breast: Reports system reviewed and no additional complaints, except as documented and Denies wounds Neurologic Neurologic: Reports system reviewed and no additional complaints, except as documented, Denies confusion, Denies headache(s), Denies lack of coordination, Denies vertigo and Denies weakness Psychiatric Psychiatric: Reports system reviewed and no additional complaints, except as documented, Denies anxiety, Denies confusion, Denies depression, Denies paranoia, Denies suicidal ideation and Denies tactile hallucinations Endocrine Endocrine: Reports system reviewed and no additional complaints, except as documented and Denies fatigue Hematologic/Lymphatic Hematologic/Lymphatic: Reports system reviewed and no additional complaints, except as documented and Denies lymphadenopathy Allergic/Immunologic Allergic/Immunologic: Reports system reviewed and no additional complaints, except as documented, Denies throat swelling, Denies urticaria and Denies wheez ing Past Medical History Past Medical History NEUROLOGIC: Negative Neurological Disorders, Seizures, Guillain-Joliet Syndrome, Migraine or Head Trauma CARDIAC: Positive Cardiac Disorders, Edema and Hypertension (third trimester); Negative Congestive Heart Failure RESPIRATORY: Negative Chronic Obstructive Pulmonary Disease (COPD), Asthma, Tuberculosis or Sleep Apnea GASTROINTESTINAL: Negative Gastrointestinal Disorders GENITOURINARY: Negative Genitourinary Disorders or Renal Disease REPRODUCTIVE: Positive Gonorrhea (tx then neg on 08/30); Negative Endometriosis, Genital Herpes, Pelvic Inflammatory Disease, Previous Pregnancies, Syphilis or Uterine Prolapse MUSCULOSKELETAL: Negative Musculoskeletal Disorders, Arthritis, Scoliosis or Fractures ENT: Negative Head Trauma ENDOCRINE: Negative Endocrine Disorders, Diabetes Mellitus Type 1, Diabetes Mellitus Type 2, Hypothyroidism or Parathyroid Disease HEMATOLOGIC: Negative Blood Disorders or Anemia OTHER HISTORY: Negative Hospitalization, Autoimmune Disease, Down Syndrome, Developmental Delay, Shingles, Falls, Blood Transfusions, Blood Transfusion Reaction, Anesthesia Reactions, Organ Transplant, MRSA, VRSA, Vancomycin- Resistant Enterococci, Human Immunodeficiency Virus (HIV), Chicken Pox, Clostridium Difficile or Cancer Family History FAMILY HISTORY: Negative Family Psychiatric Problems, Family Respiratory Disorders, Family Cardiac Disorders, Family Gastrointestinal Problems, Family Cancer, Family Surgery or Family Anesthesia Reaction Surgical History SURGICAL: Positive Abdominal Surgery; Negative Cardiac Surgery, Endocrine Surgery, Ear Surgery, Nephrectomy, Joint Replacement, Neurologic Surgery, Lumpectomy, Section or Organ Transplant Social History SMOKING STATUS: Never smoker ED Exam General Limitations: Present no limitations General appearance: Present alert and in no apparent distress Head Head exam: Present atraumatic Eye Eye exam: Present normal appearance, PERRL and EOMI ENT ENT exam: Present normal exam, normal oropharynx and mucous membranes moist Neck Neck exam: Present normal inspection, full ROM and trachea midline Chest Chest inspection: Present normal inspection and symmetric chest wall rise Respiratory Respiratory exam: Present normal lung sounds bilaterally Cardiovascular Cardiovascular exam: Present regular rate, normal rhythm and normal heart sounds Abdominal Exam Abdominal exam: Present soft, normal bowel sounds, incision and hernia; Absent distention, tenderness, guarding, rebound, rigidity, Guillen's sign or tenderness at McBurney's Point Abdominal tenderness: Absent RUQ, RLQ, LUQ or LLQ Extremities Exam Extremities exam: Present normal inspection and full ROM Back Exam Back exam: Present normal inspection and full ROM Neurological Exam Neurological exam: Present alert, oriented X3 and CN II-XII intact Psychiatric Psychiatric exam: Present normal affect and normal mood Skin Skin exam: Present warm, dry, intact and normal color Course Quality Measures none Vital Signs Vital signs: Vital Signs Temperature 98.2 F 02/04/25 06:52 Pulse Rate 85 02/04/25 06:52 Respiratory Rate 20 02/04/25 06:52 Blood Pressure 118/85 H 02/04/25 06:52 Pulse Oximetry (%) 98 02/04/25 06:52 Oxygen Delivery Method Room Air 02/04/25 06:52 Wound / Laceration MDM Narrative MDM Narrative:: 19-year-old female with no known medical history presents to the emergency room with a chief complaint of a lump to her left abdominal area. Patient states she recently had a a month ago. Patient is hemodynamically stable and in no apparent distress she is afebrile not tachycardic not tachypneic The patient has a soft nontender abdomen. The patient denies any tenderness any fevers any pain any distention. During my evaluation the patient has a abdominal hernia to her left side of her abdomen. When the patient lays down the hernia completely goes away. There is no tenderness no discoloration and no pain. When the patient stands up you are able to visually see the abdominal hernia. I spoke to the patient and told her that she will need to follow-up with her primary care provider for further management of this hernia in an outpatient setting. I gave her strict return precautions for any evidence of worsening signs or symptoms Patient was discharged and educated to follow-up with primary care provider in the next 24 to 48 hours and return to the emergency room for any evidence of worsening signs or symptoms Patient data External records reviewed:: [facility] previous records Clinical information provided by:: patient Social determinants that could affect healthcare access:: none Patient has the following chronic illnesses:: No chronic illness How is presenting disease/condition affected by chronic disease/condition?: no chronic disease Evaluation data The following diagnostics were reviewed and interpreted by me:: lab results and radiology exam(s) Lab and/or radiology exams considered but not ordered:: Labs and radiology exams considered and ordered Interpretation Summary: N/A Medications / Prescriptions Medications or Prescriptions considered but not ordered:: No medication given Medication administrations:: No medication given Consultations Consultation(s) initiated? (list below): No Diagnosis Wound Differential Diagnosis: other (Abdominal hernia/incarcerated hernia) Most likely diagnosis given after review of the tests above:: Abdominal hernia Admission Indicated Admission indicated?: not indicated Admission Request Was there a request for admission?: No Disposition Plan Disposition Plan: Discharge Discharge Attestation Discharge Attestation: The patient and all family members were given an opportunity to ask questions and understood the discharge instructions. Discharge instructions specifically effects, indications for sooner follow up or return to the emergency department, and the expected course of current diagnosis. Patient condition: Stable Discharge Plan Plan Patient Disposition: HOME (Self Care) Discharge Disposition comment: Stable Prescriptions/Referrals Prescriptions/Med Rec: No Action vit-iron fum-folic ac 28 mg iron- 800 mcg tablet 1 tab PO QDAY ibuprofen 600 mg tablet 600 mg PO Q6H PRN (Reason: pain) Qty: 30 0RF hydrocodone-acetaminophen 5-325 mg tablet 1 tab PO Q6H MDD 4 PRN (Reason: pain) Qty: 20 0RF ferrous sulfate 325 mg (65 mg iron) tablet,delayed release (DR/EC) 325 mg PO BID Qty: 60 2RF Problem List Clinical Impression: Abdominal hernia Patient/Caregiver Discharge Instructions Education Materials: ED Hernia (Adult) Additional Instructions: Please follow-up with your primary care provider in the next 24 to 48 hours You developed a hernia to your abdominal area. At this point it is not painful and there is no signs of an incarcerated hernia. Please follow-up with your primary care provider for referral for an outpatient hernia repair. For any evidence of worsening signs or symptoms return to the emergency room immediately Print Language: Persian Stand Alone Forms: Dianne Award Info., Patient Portal Info Letter REYMUNDO/ADA Supervising Physician PA/ADA Supervising Physician: Dr. FRANKLIN
== END 2025-02-04 07:15 | disposition home or self-care (01) ==
LOC: SERX 07:53
PROVIDERS: Emergency Provider Emergency Medicine
DX: K46.9 Unspecified abdominal hernia without obstruction or gangrene (principal)
CPT/HCPCS: 99281